=== PATIENT | female | born 1980 | race Caucasian/White ===

== ENCOUNTER 2021-06-30 11:46 | Emergency (ER) | payer BC ==
[~2021-06-30] VITALS: Ht 172.7 cm; Wt 157.2 kg
--- NOTE | 2021-06-30 12:19 | PHYS DOC ---
Past History Past Surgical History: Tubal ligation Alcohol Use: None Adult General Chief Complaint Chief Complaint: SHORTNESS OF BREATH HPI HPI Patient is a 40-year-old female presenting for URI symptoms. Reports symptom onset was 1 week ago without any known inciting event, trauma, ingestion, mechanism of injury or exposure. Nothing known makes better or worse. Timing o f symptoms has been constant since onset. States she has had ongoing nasal congestion, rhinorrhea, postnasal drip, dry nonproductive cough and extensive fatigue with occasional sweats, subjective fevers and chills, and x2 episodes of nonbloody nonbilious emesis. She reports she is otherwise healthy with no known medical conditions and takes no medications on a daily basis. Admits to ongoing tobacco use otherwise no alcohol or other drug use. She is unvaccinated against COVID-19. 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 See HPI for pertinent positives and negative responses, other raymundo all other systems are negative, non-pertinent or non-contributory Allergies Allergies Allergies Coded Allergies Type Severity Reaction Last Updated Verified No Known Drug Allergies 06/30/21 No Physical Exam Physical Exam General: Appears well, non toxic, morbidly obese, and comfortable Skin: Warm, dry. Normal for ethnicity. HEENT: Atraumatic. PERRLA. Rhinorrhea and congestion. Nasal turbinates boggy b/l. Moist mucous membranes. Uvula midline. Maintaining secretions. No phonation changes. Neck: Trachea midline. Normal ROM. No stridor. Respiratory: Normal WOB. CTAB w/o w/r/r. No tachypnea. Cardiovascular: Regular rate and rhythm. Normal peripheral perfusion. Abdomen: Soft. Non tender. No distension. Back: Normal ROM. Musculoskeletal: No swelling or deformity. Neuro: Alert and oriented x 4. MAEE. Lymph: No cervical LAD. Psych: Normal affect and mood. Current Patient Data Vital Signs Vital Signs Date Time Temp Pulse Resp B/P (MAP) Pulse Ox O2 Delivery O2 Flow Rate FiO2 06/30/21 12:04 98.8 99 20 126/89 (101) 95 Room Air Lab Results Laboratory Tests Test 06/30/21 12:25 Influenza Type A (Rapid) Negative Influenza Type B (Rapid) Negative SARS-CoV-2 Antigen (Rapid) Positive EKG EKG [] Radiology/Procedures Radiology/Procedures XR CHEST 1V 06/30/2021 12:18 PM INDICATION: Shortness of breath COMPARISON: None available TECHNIQUE: Portable frontal view of the chest is provided. FINDINGS: The cardiomediastinal silhouette is within normal limits. Lungs are clear. There are no significant pleural effusions. There is no pulmonary vascular congestion. No pneumothorax. No suspicious osseous abnormality. IMPRESSION: There is no acute cardiopulmonary process. Electronically signed by: Mayra Ford MD (06/30/2021 12:27 PM) [id number] Heart Score C/O Chest Pain: No Risk Factors: Risk Factors: DM, Current or recent (<one month) smoker, HTN, HLP, family history of CAD, obesity. Risk Scores: Risk Factors: DM, Current or recent (<one month) smoker, HTN, HLP, family history of CAD, obesity. Course & Med Decision Making Course & Med Decision Making ABCs unremarkable HPI physical exam and comprehensive ER work-up nonconcerning for any emergent or surgical issue, I disclosed negative radiograph but positive COVID-19 test in an unvaccinated individual Appropriate self quarantine and supportive care practices in addition to return precautions discussed prior to ER departure in an otherwise well-appearing individual Haider Disclaimer Dragbrandon Disclaimer This electronic medical record was generated, in whole or in part, using a voice recognition dictation system. Departure Departure: Impression: Primary Impression: COVID-19 Disposition: 01 HOME / SELF CARE / HOMELESS Condition: STABLE Referrals: PCP,NO (PCP) Additional Instructions: As discussed prior to ER departure, your vitals, physical exam and comprehensive ER work-up were nonconcerning for any emergent or surgical issues. Your chest x-ray was nonconcerning. You did test positive to COVID-19 virus per our rapid test. As such, you should quarantine and continue to provide supportive care to yourself in the upcoming days that should include Tylenol and/or ibuprofen as needed for aches and pains, good by mouth fluids, and deep breathing exercises. Given that you are unvaccinated it is advised that you quarantine for a total of 10 days. If any concerning signs or symptoms present prior to safe outpatient follow-up please do not hesitate to come back for repeat evaluation. It was a pleasure to take care of you and I wish you the best going forward MING HUSTON DO Jun 30, 2021 12:19
--- NOTE | 2021-06-30 12:30 | RAD ---
XR CHEST 1V 06/30/2021 12:18 PM INDICATION: Shortness of breath COMPARISON: None available TECHNIQUE: Portable frontal view of the chest is provided. FINDINGS: The cardiomediastinal silhouette is within normal limits. Lungs are clear. There are no significant pleural effusions. There is no pulmonary vascular congestion. No pneumothora x. No suspicious osseous abnormality. IMPRESSION: There is no acute cardiopulmonary process. Electronically signed by: Mayra Ford MD (06/30/2021 12:27 PM) [id number]
[2021-06-30 13:01] LABS: INFLUENZA A PATIENT NEGATIVE (NEGATIVE); INFLUENZA B PATIENT NEGATIVE (NEGATIVE)
[2021-06-30 13:44] VITALS: BP 115/82
== END 2021-06-30 13:42 | disposition home or self-care (01) ==
LOC: ER 11:46
DX: U07.1 COVID-19 (principal)
CPT/HCPCS: 71045; 87426; 87804; 99284